=== PATIENT | male | born 1995 | race Caucasian/White ===

== ENCOUNTER 2017-05-24 20:33 | Emergency (ER) | payer OTHER ==
[~2017-05-24] VITALS: Ht 167.6 cm; Wt 72.6 kg
[2017-05-24 20:35] VITALS: BP 112/70
[2017-05-24] MEDS ORDERED: AMLO10TA PO (21:27)
[2017-05-24] MEDS ORDERED: DOCU-299 GT (21:27)
[2017-05-24] MEDS ORDERED: BENA20TA GT (21:27)
[2017-05-24] MEDS ORDERED: ACET-2619 GT (21:28)
[2017-05-24] MEDS ORDERED: FAMO-90 GT (21:28)
[2017-05-24] MEDS ORDERED: SENN-73 GT (21:28)
[2017-05-24] MEDS ORDERED: MAGN400S60 GT (21:28)
[2017-05-24] MEDS ORDERED: MIRABULK GT (21:28)
[2017-05-24] MEDS ORDERED: ONDA4TAB GT (21:28)
[2017-05-24] MEDS ORDERED: KEP500L GT (21:28)
[2017-05-25] MEDS ORDERED: ACETAMINOPHEN 325 MG TAB ONE (00:14)
[2017-05-25] MEDS ORDERED: ACETAMINOPHEN EXTRA STRENGTH 500 MG TAB PO ONE (00:20)
[2017-05-25] MEDS ORDERED: NACL 0.9% 1,000 ML IV ONE (00:25)
[2017-05-25 00:41] LABS: BASOPHILS # (AUTO) 0.4 K/uL (0.00-0.22); BASOPHILS % (AUTO) 4.4 % (0.0-2.0); EOSINOPHILS # (AUTO) 0.1 K/uL (0-0.4); EOSINOPHILS % (AUTO) 1.6 % (0.0-4.0); HEMATOCRIT 39.5 % (36-52); HEMOGLOBIN 12.8 g/dL (12.0-18.0); LYMPHOCYTES # (AUTO) 1.4 K/uL (2.0-11.5); LYMPHOCYTES % (AUTO) 15.4 % (20.5-51.1); MEAN CORPUSCULAR HEMOGLOBIN 26 pg (27-31); MEAN CORPUSCULAR HGB CONC 32 g/dL (33-37); MEAN CORPUSCULAR VOLUME 79 fL (80-94); MONOCYTES # (AUTO) 0.8 K/uL (0.8-1.0); MONOCYTES % (AUTO) 8.4 % (1.7-9.3); NEUTROPHILS # (AUTO) 6.6 K/uL (1.8-7.7); NEUTROPHILS % (AUTO) 70.2 % (42.2-75.2); PLATELET COUNT (AUTO) 316 K/uL (140-450); RED BLOOD CELL COUNT(AUTO) 5.03 MIL/uL (4.20-6.10); WHITE BLOOD COUNT (AUTO) 9.3 K/uL (4.8-10.8)
[2017-05-25 00:51] LABS: CARBON DIOXIDE 27.1 mmol/L (21-32); CREATININE 0.7 mg/dL (0.7-1.3); POTASSIUM 4.1 mmol/L (3.5-5.1)
[2017-05-25 04:45] VITALS: BP 106/61
== END 2017-05-25 03:45 | disposition home or self-care (01) ==
LOC: MED 20:33
DX: R51 Headache (principal); Z86.73 Personal history of transient ischemic attack (TIA), and cerebral infarction without residual deficits
CPT/HCPCS: 36415; 70450; 70460; 80048; 85025; 96360; 96361; 99285; J7030; Q9967

== ENCOUNTER 2017-10-12 19:50 | Inpatient (IN) | payer OTHER ==
[~2017-10-12] VITALS: Ht 177.8 cm; Wt 80.7 kg
[2017-10-12 19:50] VITALS: BP 109/66
[~2017-10-12 19:50] MED LIST: ACET-2619 GT; AMLO10TA PO; BENA20TA GT; DOCU-299 GT; FAMO-90 GT; KEP500L GT; MAGN400S60 GT; MIRABULK GT; ONDA4TAB GT; SENN-73 GT
[2017-10-12] MEDS ORDERED: NACL 0.9% 1,000 ML IV ONE (20:10)
[2017-10-12] MEDS ORDERED: ONDANSETRON 4 MG/2 ML VIAL IVP ONE (20:45)
[2017-10-12] MEDS ORDERED: fentaNYL 0.05 MG/ML VIAL IVP ONE ×2 (20:45→22:10)
[2017-10-12 20:54] LABS: BASOPHILS # (AUTO) 0.1 K/uL (0.00-0.22); BASOPHILS % (AUTO) 1.6 % (0.0-2.0); EOSINOPHILS # (AUTO) 0.2 K/uL (0-0.4); EOSINOPHILS % (AUTO) 1.8 % (0.0-4.0); HEMATOCRIT 40.2 % (36-52); HEMOGLOBIN 13.3 g/dL (12.0-18.0); LYMPHOCYTES # (AUTO) 1.9 K/uL (2.0-11.5); LYMPHOCYTES % (AUTO) 22.1 % (20.5-51.1); MEAN CORPUSCULAR HEMOGLOBIN 27 pg (27-31); MEAN CORPUSCULAR HGB CONC 33 g/dL (33-37); MEAN CORPUSCULAR VOLUME 81.2 fL (80-94); MONOCYTES # (AUTO) 0.9 K/uL (0.8-1.0); MONOCYTES % (AUTO) 10.5 % (1.7-9.3); NEUTROPHILS # (AUTO) 5.5 K/uL (1.8-7.7); PLATELET COUNT (AUTO) 230 K/uL (140-450); RED BLOOD CELL COUNT(AUTO) 4.95 MIL/uL (4.20-6.10); RED CELL DISTRIBUTION WIDTH 16.2 % (11.6-13.7); WHITE BLOOD COUNT (AUTO) 8.6 K/uL (4.8-10.8)
[2017-10-12 21:28] LABS: ANION GAP 12.5 (8-16); CARBON DIOXIDE 27.2 mmol/L (21-32); CREATININE 0.6 mg/dL (0.7-1.3); POTASSIUM 3.7 mmol/L (3.5-5.1)
[2017-10-12 21:29] LABS: PROTHROMBIN TIME 11.1 secs (10.8-13.4)
[2017-10-12 21:32] LABS: ALBUMIN 3.9 g/dL (3.4-5.0); TOTAL BILIRUBIN 0.4 mg/dL (0.0-1.0)
[2017-10-12 21:37] LABS: APPEARANCE,URINE CLEAR (CLEAR); BILIRUBIN,URINE NEGATIVE (NEGATIVE); BLOOD, URINE NEGATIVE (NEGATIVE); COLOR,URINE YELLOW (YELLOW); LEUKOCYTE ESTERASE ,URINE TRACE (NEGATIVE); NITRITE, URINE NEGATIVE (NEGATIVE); PH,URINE 7.5 (5.0-9.0); UGLUCOSE NEGATIVE (NEGATIVE)
[2017-10-12 21:50] LABS: RBC,URINE 0-5 (RARE) /HPF (0-5); WBC,URINE 0-5 (RARE) /HPF (0-5)
[2017-10-12] MEDS ORDERED: LEVOFLOXACIN 500 MG/D5W PREMIX 100 ML IV ONE (22:10)
[2017-10-12] MEDS: NACL 0.9% 1,000 ML IV SCH (23:01)
[2017-10-12] MEDS ORDERED: LORazepam 2 MG/ML VIAL IVP PRN (23:05)
[2017-10-12] MEDS ORDERED: HYDROcodone/APAP 5/325 MG 1 TAB TAB PO PRN ×2 (23:05)
[2017-10-12] MEDS ORDERED: ONDANSETRON 4 MG/2 ML VIAL IVP PRN (23:05)
[2017-10-13] MEDS ORDERED: cefTRIAXone 1,000 MG VIAL ONE (01:13)
[2017-10-13] MEDS: NACL 0.9% 1,000 ML IV SCH (01:49)
[2017-10-13 04:00] VITALS: BP 113/63
[2017-10-13 07:01] LABS: BASOPHILS # (AUTO) 0.1 K/uL (0.00-0.22); BASOPHILS % (AUTO) 0.7 % (0.0-2.0); EOSINOPHILS # (AUTO) 0.2 K/uL (0-0.4); EOSINOPHILS % (AUTO) 1.5 % (0.0-4.0); HEMATOCRIT 39.3 % (36-52); HEMOGLOBIN 12.9 g/dL (12.0-18.0); LYMPHOCYTES # (AUTO) 1.4 K/uL (2.0-11.5); MEAN CORPUSCULAR HEMOGLOBIN 27 pg (27-31); MEAN CORPUSCULAR HGB CONC 33 g/dL (33-37); MEAN CORPUSCULAR VOLUME 81.7 fL (80-94); MONOCYTES # (AUTO) 0.9 K/uL (0.8-1.0); MONOCYTES % (AUTO) 8.3 % (1.7-9.3); NEUTROPHILS # (AUTO) 8.1 K/uL (1.8-7.7); NEUTROPHILS % (AUTO) 76.5 % (42.2-75.2); PLATELET COUNT (AUTO) 223 K/uL (140-450); RED BLOOD CELL COUNT(AUTO) 4.81 MIL/uL (4.20-6.10); RED CELL DISTRIBUTION WIDTH 16.2 % (11.6-13.7); WHITE BLOOD COUNT (AUTO) 10.6 K/uL (4.8-10.8)
[2017-10-13] MEDS: ALBUTEROL 0.083% 2.5 MG/3 ML NEBU INH PRN ×2 (07:19→19:31)
[2017-10-13 07:31] LABS: ALBUMIN 3.7 g/dL (3.4-5.0); ANION GAP 16.1 (8-16); CARBON DIOXIDE 22.8 mmol/L (21-32); CREATININE 0.6 mg/dL (0.7-1.3); MAGNESIUM 1.8 mg/dL (1.8-2.4); POTASSIUM 3.9 mmol/L (3.5-5.1); TOTAL BILIRUBIN 0.6 mg/dL (0.0-1.0)
[2017-10-13 08:00] VITALS: BP 115/65
[2017-10-13 16:00] VITALS: BP 105/57
[2017-10-13 20:00] VITALS: BP 112/62
[2017-10-14] MEDS: NACL 0.9% 1,000 ML IV SCH ×2 (01:41→07:01)
[2017-10-14 07:11] LABS: BASOPHILS # (AUTO) 0.1 K/uL (0.00-0.22); BASOPHILS % (AUTO) 0.8 % (0.0-2.0); EOSINOPHILS # (AUTO) 0.2 K/uL (0-0.4); EOSINOPHILS % (AUTO) 2.5 % (0.0-4.0); HEMATOCRIT 37.9 % (36-52); HEMOGLOBIN 12.4 g/dL (12.0-18.0); LYMPHOCYTES # (AUTO) 1.7 K/uL (2.0-11.5); MEAN CORPUSCULAR HEMOGLOBIN 27 pg (27-31); MEAN CORPUSCULAR HGB CONC 33 g/dL (33-37); MEAN CORPUSCULAR VOLUME 80.8 fL (80-94); MONOCYTES # (AUTO) 0.7 K/uL (0.8-1.0); MONOCYTES % (AUTO) 8.9 % (1.7-9.3); NEUTROPHILS # (AUTO) 5.6 K/uL (1.8-7.7); NEUTROPHILS % (AUTO) 67.8 % (42.2-75.2); PLATELET COUNT (AUTO) 223 K/uL (140-450); RED BLOOD CELL COUNT(AUTO) 4.69 MIL/uL (4.20-6.10); RED CELL DISTRIBUTION WIDTH 16.4 % (11.6-13.7); WHITE BLOOD COUNT (AUTO) 8.3 K/uL (4.8-10.8)
[2017-10-14] MEDS: ALBUTEROL 0.083% 2.5 MG/3 ML NEBU INH PRN ×2 (07:14→13:09)
[2017-10-14 07:35] LABS: MAGNESIUM 1.8 mg/dL (1.8-2.4); PHOSPHORUS 3.8 mg/dL (2.5-4.9)
[2017-10-14 08:00] VITALS: BP 98/49
[2017-10-14 08:26] LABS: ANION GAP 15.5 (8-16); CARBON DIOXIDE 23.4 mmol/L (21-32); CREATININE 0.6 mg/dL (0.7-1.3); POTASSIUM 3.9 mmol/L (3.5-5.1)
[2017-10-14] MEDS ORDERED: ENOXAPARIN 30 MG/0.3 ML SYR SUBQ SCH (10:40)
[2017-10-14] MEDS ORDERED: ROC1PM IV (10:43)
[2017-10-14] MEDS: ACETAMINOPHEN 325 MG TAB PO PRN ×2 (11:55→16:09)
[2017-10-14 16:00] VITALS: BP 99/53
[2017-10-15] VITALS: BP 100/56
[2017-10-15 06:29] LABS: BASOPHILS # (AUTO) 0.1 K/uL (0.00-0.22); BASOPHILS % (AUTO) 0.8 % (0.0-2.0); EOSINOPHILS # (AUTO) 0.2 K/uL (0-0.4); HEMATOCRIT 39.1 % (36-52); LYMPHOCYTES # (AUTO) 1.6 K/uL (2.0-11.5); LYMPHOCYTES % (AUTO) 20.4 % (20.5-51.1); MEAN CORPUSCULAR HEMOGLOBIN 27 pg (27-31); MEAN CORPUSCULAR HGB CONC 33 g/dL (33-37); MEAN CORPUSCULAR VOLUME 81.4 fL (80-94); MONOCYTES # (AUTO) 0.9 K/uL (0.8-1.0); MONOCYTES % (AUTO) 12.1 % (1.7-9.3); NEUTROPHILS % (AUTO) 63.7 % (42.2-75.2); PLATELET COUNT (AUTO) 223 K/uL (140-450); RED BLOOD CELL COUNT(AUTO) 4.81 MIL/uL (4.20-6.10); RED CELL DISTRIBUTION WIDTH 16.4 % (11.6-13.7); WHITE BLOOD COUNT (AUTO) 7.8 K/uL (4.8-10.8)
[2017-10-15 06:36] LABS: ANION GAP 13.2 (8-16); CARBON DIOXIDE 25.5 mmol/L (21-32); CREATININE 0.6 mg/dL (0.7-1.3); POTASSIUM 3.7 mmol/L (3.5-5.1)
[2017-10-15 07:05] LABS: PHOSPHORUS 4.4 mg/dL (2.5-4.9)
[2017-10-15 08:00] VITALS: BP 102/56
[2017-10-15] MEDS ORDERED: ROC1PM IV ×3 (13:13→13:20)
[2017-10-15] MEDS: ACETAMINOPHEN 325 MG TAB PO PRN (14:54)
[2017-10-15 16:00] VITALS: BP 106/56
== END 2017-10-15 18:30 | disposition home or self-care (01) | DRG 463 ==
LOC: MED 19:50 → MTU 23:06
PROVIDERS: ADMIT Internal Medicine Pulmonary Disease; ATTEND Internal Medicine Pulmonary Disease
DX: N39.0 Urinary tract infection, site not specified (principal); J96.11 Chronic respiratory failure with hypoxia; R65.10 Systemic inflammatory response syndrome (SIRS) of non-infectious origin without acute organ dysfunction; Z93.0 Tracheostomy status; R13.10 Dysphagia, unspecified; Z93.1 Gastrostomy status; J20.9 Acute bronchitis, unspecified; I10 Essential (primary) hypertension; Z79.899 Other long term (current) drug therapy
CPT/HCPCS: 36415; 51702; 70450; 71045; 80048; 80053; 81001; 83605; 83735; 83880; 84100; 84484; 85025; 85610; 85730; 87040; 87070; 87081; 87086; 87205; 93005; 94640; 96365; 96375; 96376; 99285; J0696; J1956; J2405; J3010; J7030; J7060; J7120; J7613

== ENCOUNTER 2018-02-28 16:50 | Inpatient (IN) | payer OTHER ==
[~2018-02-28] VITALS: Ht 175.3 cm; Wt 73.5 kg
[~2018-02-28 16:50] MED LIST changes: +ROC1PM IV
--- NOTE | 2018-02-28 16:50 | NUR ---
PT BIBA BLS TO BED 10
[2018-02-28 16:51] VITALS: BP 106/60
--- NOTE | 2018-02-28 16:52 | NUR ---
PATIENT PRES[place] [facility] [place] HEADACHE AND FEVER FOR 4 DAYS. PT STATES HEADACHE IS SEVERE WITH PAIN AT 10/10. G TUBE IN PLACE, FLUSHED. DENIES N/V/D; SKIN IS PINK/WARM/DRY; AAOX3 WITH EVEN AND STEADY GAIT; LUNGS CLEAR BL; HR EVEN AND REGULAR; PT DENIES ANY FEVER, CP, SOB, OR COUGH AT THIS TIME; PATIENT STATES PAIN OF 10/10 AT THIS TIME; VSS; PATIENT POSITIONED FOR COMFORT; HOB ELEVATED; BEDRAILS UP X2; BED DOWN. ER MD MADE AWARE OF PT STATUS.
--- NOTE | 2018-02-28 17:08 | NUR ---
Patient being evaluated by physician at bedside.
[2018-02-28] MEDS ORDERED: NACL 0.9% 1,000 ML IV SCH (17:15)
[2018-02-28] MEDS ORDERED: fentaNYL 0.05 MG/ML VIAL IVP ONE (17:15)
[2018-02-28] MEDS ORDERED: ONDANSETRON 4 MG/2 ML VIAL IVP ONE (17:15)
--- NOTE | 2018-02-28 17:40 | NUR ---
RT AT BEDSIDE FOR BLOOD GAS DRAW
[2018-02-28 18:12] LABS: BASOPHILS # (AUTO) 0.1 K/uL (0.00-0.22); BASOPHILS % (AUTO) 0.9 % (0.0-2.0); EOSINOPHILS # (AUTO) 0.2 K/uL (0-0.4); EOSINOPHILS % (AUTO) 2.6 % (0.0-4.0); HEMATOCRIT 39.2 % (36-52); HEMOGLOBIN 12.7 g/dL (12.0-18.0); LYMPHOCYTES # (AUTO) 2.4 K/uL (2.0-11.5); LYMPHOCYTES % (AUTO) 26.8 % (20.5-51.1); MEAN CORPUSCULAR HEMOGLOBIN 25 pg (27-31); MEAN CORPUSCULAR HGB CONC 32 g/dL (33-37); MEAN CORPUSCULAR VOLUME 78.4 fL (80-94); MONOCYTES # (AUTO) 0.9 K/uL (0.8-1.0); MONOCYTES % (AUTO) 10.4 % (1.7-9.3); NEUTROPHILS # (AUTO) 5.2 K/uL (1.8-7.7); NEUTROPHILS % (AUTO) 59.3 % (42.2-75.2); PLATELET COUNT (AUTO) 292 K/uL (140-450); RED CELL DISTRIBUTION WIDTH 15.4 % (11.6-13.7); WHITE BLOOD COUNT (AUTO) 8.8 K/uL (4.8-10.8)
--- NOTE | 2018-02-28 18:20 | NUR ---
LAB CALLED FOR URINE PICKUP
[2018-02-28 18:22] LABS: ANION GAP 9.8 (8-16); CARBON DIOXIDE 28.8 mmol/L (21-32); CREATININE 0.6 mg/dL (0.7-1.3); POTASSIUM 3.6 mmol/L (3.5-5.1)
[2018-02-28 18:27] LABS: PROTHROMBIN TIME 10.6 secs (10.8-13.4)
[2018-02-28 18:28] LABS: ALBUMIN 3.4 g/dL (3.4-5.0); TOTAL BILIRUBIN 0.5 mg/dL (0.0-1.0)
[2018-02-28 18:31] LABS: APPEARANCE,URINE CLOUDY (CLEAR); COLOR,URINE YELLOW (YELLOW)
[2018-02-28 18:34] LABS: BILIRUBIN,URINE NEGATIVE (NEGATIVE); BLOOD, URINE TRACE (NEGATIVE); LEUKOCYTE ESTERASE ,URINE 3+ (NEGATIVE); NITRITE, URINE NEGATIVE (NEGATIVE); UGLUCOSE NEGATIVE (NEGATIVE)
[2018-02-28 18:41] LABS: RBC,URINE 3-10 (FEW) /HPF (0-5); WBC,URINE TOO MANY TO COUNT /HPF (0-5)
[2018-02-28] MEDS ORDERED: LEVOFLOXACIN 500 MG/D5W PREMIX 100 ML IV ONE (18:50)
[2018-02-28] MEDS ORDERED: KETOROLAC 15 MG/ML VIAL IVP ONE (18:55)
[2018-02-28] MEDS ORDERED: ONDANSETRON 4 MG/2 ML VIAL IVP PRN (19:10)
[2018-02-28] MEDS ORDERED: ACETAMINOPHEN 325 MG TAB PO PRN (19:10)
[2018-02-28] MEDS ORDERED: ALBUTEROL 0.083% 2.5 MG/3 ML NEBU INH PRN (19:10)
--- NOTE | 2018-02-28 19:12 | NUR ---
GAVE REPORT TO HIGH RAW SUGAR BOILER RNNATHALIA FOR CONTINUATION OF PATIENT CARE
[2018-02-28] MEDS ORDERED: ACETAMINOPHEN 325 MG TAB GT PRN (19:15)
--- NOTE | 2018-02-28 19:23 | NUR ---
RECEIVED REPORT FROM AM NURSE. PT RESTING COMFORTABLY IN BED, RR EVEN AND UNLABORED. VSS, PT REPORTS 11/15 HEADACHE. MEDS GIVEN ORDERED. ALL NEEDS MET.
[2018-02-28] MEDS ORDERED: ACETAMINOPHEN 650 MG/20.3 ML UDC GT PRN (19:45)
--- NOTE | 2018-02-28 20:00 | NUR ---
Patient will be admitted to care of DR. AGUILAR. Admited to TELE. Will go to room 116. Belongings list completed. Report to LESLY DEGROOT.
[2018-02-28 20:30] VITALS: BP 108/66
--- NOTE | 2018-02-28 20:30 | NUR ---
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
[2018-02-28] MEDS ORDERED: PIPERACILLIN/TAZOBACTAM 3.375 GM VIAL IV ONE (20:50)
[2018-02-28] MEDS: DEXT 5% /NACL 0.9% 1,000 ML IV SCH (20:52)
[2018-02-28] MEDS ORDERED: PIPERACILLIN/TAZOBACTAM 3.375 GM in DEXTROSE 5% 50 ML IV SCH (21:00)
[2018-02-28] MEDS: SENNA 8.6 MG TAB GT SCH (22:11)
[2018-02-28] MEDS: levETIRAcetam 100 MG/ML ORASYR GT SCH (22:11)
[2018-03-01] VITALS (7 sets, daily range): BP systolic 101–114; BP diastolic 52–65
--- NOTE | 2018-03-01 | NUR ---
REPOSITIONED Q2H ON TELEMETRY SR ON 06 10 LTS , ON TELEMETRY SR, ANTIBIOTICS GIVEN ORDER AND WELL TOLERATED G TUBE FEEDING ZERO RESIDUAL
--- NOTE | 2018-03-01 03:06 | NUR ---
PT SLEEPING WELL ON 2 LTS VIA NC, ON TELEMETRY SR NOT FEVER NOTED REPOSITIONED Q2H
--- NOTE | 2018-03-01 05:00 | NUR ---
SPONGE BATH GIVEN LINEN CHANGED REPOSITIONED IV N RT AC INFUSING WELL ON TELEMETRY SR
[2018-03-01] MEDS ORDERED: PIPERACILLIN/TAZOBACTAM 3.375 GM VIAL IV ONE (05:28)
[2018-03-01] MEDS ORDERED: PIPERACILLIN/TAZOBACTAM 3.375 GM in DEXTROSE 5% 50 ML IV SCH (06:00)
[2018-03-01 06:49] LABS: BASOPHILS # (AUTO) 0.1 K/uL (0.00-0.22); EOSINOPHILS # (AUTO) 0.2 K/uL (0-0.4); EOSINOPHILS % (AUTO) 1.9 % (0.0-4.0); HEMATOCRIT 36.7 % (36-52); HEMOGLOBIN 11.8 g/dL (12.0-18.0); LYMPHOCYTES # (AUTO) 1.5 K/uL (2.0-11.5); LYMPHOCYTES % (AUTO) 17.6 % (20.5-51.1); MEAN CORPUSCULAR HEMOGLOBIN 25 pg (27-31); MEAN CORPUSCULAR HGB CONC 32 g/dL (33-37); MONOCYTES # (AUTO) 0.7 K/uL (0.8-1.0); MONOCYTES % (AUTO) 7.8 % (1.7-9.3); NEUTROPHILS # (AUTO) 6.1 K/uL (1.8-7.7); NEUTROPHILS % (AUTO) 71.7 % (42.2-75.2); PLATELET COUNT (AUTO) 292 K/uL (140-450); RED BLOOD CELL COUNT(AUTO) 4.65 MIL/uL (4.20-6.10); RED CELL DISTRIBUTION WIDTH 15.5 % (11.6-13.7); WHITE BLOOD COUNT (AUTO) 8.5 K/uL (4.8-10.8)
--- NOTE | 2018-03-01 06:49 | NUR ---
PT SLEEPING NOT FEVER ON TELE SR PT WILL BE ENDORSED TO DAY SHIFT NURSE FOR CONTINUITY OF CARE
[2018-03-01 07:44] LABS: ALBUMIN 3.3 g/dL (3.4-5.0); ANION GAP 10.2 (8-16); CARBON DIOXIDE 29.1 mmol/L (21-32); CREATININE 0.6 mg/dL (0.7-1.3); MAGNESIUM 1.9 mg/dL (1.8-2.4); PHOSPHORUS 4.2 mg/dL (2.5-4.9); POTASSIUM 4.3 mmol/L (3.5-5.1); TOTAL BILIRUBIN 0.8 mg/dL (0.0-1.0)
--- NOTE | 2018-03-01 08:00 | NUR ---
RECEIVED REPORT FROM ZANE GRACE FOR CONTINUITY OF CARE. PATIENT AWAKE A/OX2 SLURRED SPEECH , ABLE TO MAKE NEEDS KNOWN. BED BOUND LEFT SIDED WEAKNESS. SKIN IS INTACT. WILL REPOSITION Q 2 HRS TO PREVENT SKIN BREAKDOWN. G-TUBE FEEDING SITE CLEAN AND DRY NO LEAKAGE . IV SITE RT AC GAUGE 20 INTACT AND PATENT. IVF INFUSING WELL . PLAN OF CARE DISCUSSED WITH THE PATIENT VITALS STABLE WILL CONTINUE TO MONITOR.
--- NOTE | 2018-03-01 08:36 | NUR ---
PATIENT HAS BEEN SCREENED AND CATEGORIZED HIGH NUTRITION RISK. PATIENT WILL BE SEEN WITHIN 1-2 DAYS OF ADMISSION. 03/01/18 03/02/[address]
[2018-03-01] MEDS: amLODIPine 5 MG TAB GT SCH (09:00)
[2018-03-01] MEDS: BENAZEPRIL 20 MG TAB GT SCH (09:00)
[2018-03-01] MEDS: FAMOTIDINE 20 MG TAB GT SCH (09:29)
[2018-03-01] MEDS: levETIRAcetam 100 MG/ML ORASYR GT SCH ×2 (09:29→20:26)
[2018-03-01] MEDS: POLYETHYLENE GLYCOL 17 GM/PKT GT SCH (09:29)
[2018-03-01] MEDS: DEXT 5% /NACL 0.9% 1,000 ML IV SCH (09:31)
[2018-03-01] MEDS: SENNA 8.6 MG TAB GT SCH ×2 (09:32→20:26)
--- NOTE | 2018-03-01 09:46 | NUR ---
DUE MEDS GIVEN TOLERATED WELL HELD BP MEDS FOR LOW BP 108/65 WILL RECHECK BP
--- NOTE | 2018-03-01 12:00 | NUR ---
RELAXED TOLERABLE HEADACHE , VITALS STABLE, KEPT PT CLEAN AND DRY AND REPOSITIONED VITALS STABLE AT THIS TIME
--- NOTE | 2018-03-01 12:35 | NUR ---
03/01/18 RD INITIAL ASSESSMENT COMPLETED PLEASE REFER TO NUTRITION ASSESSMENT UNDER CARE ACTIVITY FOR ESTIMATED NUTRITIONAL NEEDS. 1. RECOMMEND INITIATING TUBE FEEDING WITH JEVITY 1.2 @ GOAL RATE OF 70 ML/HR; START AT 20 ML/HR, ADVANCE BY 10 ML/HR TO GOAL RATE 70 ML/HR. -THIS WILL PROVIDE 1680 ML OF VOLUME, 2016 KCAL, AND 93 GM OF PROTEIN, WHICH MEETS 100% OF ESTIMATED NEEDS. 2. RECOMMEND FREE H20 FLUSH [address] TO FOLLOW-UP 2-3 DAYS, HIGH RISK YANCY EARLY RD
--- NOTE | 2018-03-01 13:00 | NUR ---
Initial review faxed to [facility].
--- NOTE | 2018-03-01 14:00 | NUR ---
DR AGUILAR VISITED PATIENT NOTIFIED DIATERY RECOMMENDATION FOR G-TUBE FEEDING ,NEW ORDER CARRIED OUT ,FAMILY AT THE BED SIDE SPOKE WITH DR AGUILAR REGARDING PATIENT'S CONDITION.
[2018-03-01] MEDS: PIPER/TAZO 3.375GM/D5W PREMIX 50 ML IV SCH ×3 (14:14→23:37)
[2018-03-01] MEDS ORDERED: HYDROcodone/APAP 5/325 MG 1 TAB TAB PO PRN (16:00)
[2018-03-01] MEDS ORDERED: HYDROcodone/APAP 10/325 MG 1 TAB TAB PO PRN (16:00)
--- NOTE | 2018-03-01 16:16 | NUR ---
AWAKE ,COMPLAIN OF HEAD ACHE NOTIFIED MD AMADO REYES WAITING FOR PHARMACY TO VERIFY. VITALS STABLE.
--- NOTE | 2018-03-01 17:45 | NUR ---
Criminal Justice Social Worker Notes: I called [facility] I spoke to Amee from Admissions to discuss and gather Patient's information. Per Amee Patient is on a 7 days hold and is able to return to [facility] when he is ready and clear for discharge. I thanked her for information and I ended the call.
--- NOTE | 2018-03-01 18:45 | NUR ---
PT STATED HEADACHE RELIEVED , SAFETY MAINTAINED CALL LIGHT IN REACH . STABLE CONDITION AT THIS TIME.
--- NOTE | 2018-03-01 19:30 | NUR ---
ASSUMED CARE OF PATIENT, AWAKE, ALERT AND ORIENTED. FAMILY AT BEDSIDE. NO COMPLAINS. CALL LIGHT WITHIN REACH. CARE BOARD UPDATED. PLAN OF CARE DISCUSSED WITH PATIENT AND FAMILY MEMBER, VERBALIZED UNDERSTANDING WELL.
--- NOTE | 2018-03-01 20:30 | NUR ---
REPOSITIONED AND PERICARE BY ASSESSMENT ANALYST. CALL LIGHT WITHIN REACH. HOB ELEVATED AT ALL TIME. GT FEEDING WELL, TOLERATED WITH NO RESIDUAL NOTED, INCREASE FEEDING TO 30ML/HR.
--- NOTE | 2018-03-01 21:00 | NUR ---
ICE PACK APPLIED TO HEAD PER MOTHER REQUEST. PAIN MEDS GIVEN WELL. CALL LIGHT WITHIN REACH.
--- NOTE | 2018-03-01 23:52 | NUR ---
ASLEEP, AFEBRILE. NO COMPLAINS. VITALS SIGNS STABLE. GT FEEDING ONGOING AND WELL TOLERATED. CALL LIGHT WITHIN REACH.
[2018-03-02] MEDS: DEXT 5% /NACL 0.9% 1,000 ML IV SCH ×2 (00:46→12:00)
[2018-03-02 04:10] VITALS: BP 101/54
--- NOTE | 2018-03-02 04:11 | NUR ---
REPOSITIONED AND PERICARE BY NAILING MACHINE OPERATOR AUTOMATIC. ASLEEP WELL, EASILY AROUSABLE. NO COMPLAINS. VITAL SIGNS STABLE. CALL LIGHT WITHIN REACH.
[2018-03-02] MEDS: PIPER/TAZO 3.375GM/D5W PREMIX 50 ML IV SCH ×2 (05:42→12:26)
--- NOTE | 2018-03-02 07:26 | NUR ---
ENDORSED CARE AT BEDSIDE WITH YOLANDA RN, PATIENT IN STABLE CONDITION.
--- NOTE | 2018-03-02 07:27 | NUR ---
RECEIVED REPORT FROM TRANSFER WORKER NURSE, PT IS SLEEPING IN BED BUT EASILY AWAKEN, PT IS AAOX2, PT IS ON BEDREST, HAS DELAYED VERBAL RESPONSE, PT IS ON O2 2L NC, PT HAS G-TUBE IN PLACE, JEVITY 1.2 RUNNING AT 40ML/HR, SKIN IS INTACT, IV IS ON THE LEFT AC, PATENT, INTACT, FLUSHING WELL, NO S/S OF RESPIRATORY DISTRESS OR DISCOMFORT NOTED, DISCUSSED PLAN OF CARE WITH PT, PT VERBALIZED UNDERSTANDING, SAFETY/FALL/SEIZURE PRECAUTIONS ARE IN PLACE, CALL LIGHT IS WITHIN REACH, WILL CONTINUE TO MONITOR.
[2018-03-02 08:00] VITALS: BP 116/73
--- NOTE | 2018-03-02 08:47 | NUR ---
PATIENT'S G-TUBE FEEDING CHECKED, PATIENT'S TUBE FEEDING INCREASED TO 50ML/HR AT THIS TIME.
[2018-03-02] MEDS: BENAZEPRIL 20 MG TAB GT SCH (09:29)
[2018-03-02] MEDS: SENNA 8.6 MG TAB GT SCH (09:29)
[2018-03-02] MEDS: levETIRAcetam 100 MG/ML ORASYR GT SCH (09:29)
[2018-03-02] MEDS: FAMOTIDINE 20 MG TAB GT SCH (09:29)
[2018-03-02] MEDS: POLYETHYLENE GLYCOL 17 GM/PKT GT SCH (09:29)
[2018-03-02] MEDS: amLODIPine 5 MG TAB GT SCH (09:30)
--- NOTE | 2018-03-02 09:40 | NUR ---
ADMINISTERED PATIENT'S SCHEDULED MEDICATIONS VIA G-TUBE. RESIDUAL WAS 0. PATIENT TOLERATED WELL. ALL NEEDS MET AT THIS TIME.
--- NOTE | 2018-03-02 10:57 | NUR ---
PT IS RESTING IN BED AT THIS TIME, SEMI FOWLERS POSITION, ALL NEEDS ARE MET AT THIS TIME. PATIENT'S MOTHER IS AT BEDSIDE, CALL LIGHT IS WITHIN REACH.
[2018-03-02] MEDS ORDERED: ZOS3.375PM IV (10:58)
[2018-03-02 12:00] VITALS: BP 101/49
--- NOTE | 2018-03-02 12:27 | NUR ---
PT IS RESTING IN BED AT THIS TIME, SEMI FOWLERS POSITION, ALL NEEDS ARE MET AT THIS TIME. CALL LIGHT IS WITHIN REACH.
--- NOTE | 2018-03-02 14:05 | NUR ---
CALLED THE PATIENT'S (VETO) AND LET HER KNOW THE PATIENT WOULD BE PICKED UP TODAY AT 1630.
--- NOTE | 2018-03-02 14:05 | NUR ---
CM NOTE RECEIVED ORDER [place] [facility] [place]. [place] CLINICAL PACKET [place]CROBIOLOG[place] [facility] [phone]. PER KAJAL [place] [facility] [place] CAN GO TO [address] AGUILAR. PER [facility] KIERSTEN AQUINO PH# [phone], FOR [facility] AUTH# [id number]. PER YUSUF OF [facility] PH# [phone], PATIENT WILL BE PICKED UP AT 1630 TIME TODAY GO[place] [facility] [place] JENNA GRACE AWARE. Addendum: 03/02/18 at 1503 by Lala Sterling CM PER IE KIERSTEN URBAN PH# [phone], FOR [facility] AUTH# [id number]. KAJAL OF [facility] AWARE.
[2018-03-02 16:00] VITALS: BP 109/63
--- NOTE | 2018-03-02 16:30 | NUR ---
CALLED [facility] AND GAVE REPORT TO BLAINE.
--- NOTE | 2018-03-02 17:00 | NUR ---
DISCHARGE INSTRUCTIONS GIVEN. RIGHT IV LEFT IN PLACE TO CONTINUE ABX. IV WAS PATENT AND INTACT, FLUSHING WELL. PATIENT HAD NO BURKS. PATIENT TOOK DISCHARGE PAPERWORK AND CELLPHONE AND BEAN ROASTER WITH HIM. PATIENT STABLE UPON DISCHARGE [place] [facility] [place].
== END 2018-03-02 17:00 | DRG 463 ==
LOC: MED 16:50 → MTU 19:14
PROVIDERS: ADMIT Hospitalist; ATTEND Hospitalist
DX: N39.0 Urinary tract infection, site not specified (principal); Z93.0 Tracheostomy status; R13.10 Dysphagia, unspecified; I69.254 Hemiplegia and hemiparesis following other nontraumatic intracranial hemorrhage affecting left non-dominant side; G40.909 Epilepsy, unspecified, not intractable, without status epilepticus; I10 Essential (primary) hypertension; R51 Headache; Z93.1 Gastrostomy status
CPT/HCPCS: 36415; 36600; 70450; 71045; 80053; 81001; 82803; 83605; 83735; 83880; 84100; 84484; 85025; 85610; 85730; 87040; 87081; 87086; 87186; 87804; 93005; 94640; 96365; 96375; 99285; J1885; J1956; J2405; J2543; J3010; J7042; J7060; J7613; Q0092

== ENCOUNTER 2018-03-18 05:43 | Emergency (ER) | payer OTHER ==
[~2018-03-18] VITALS: Ht 172.7 cm; Wt 59.0 kg
[~2018-03-18 05:43] MED LIST changes: -ROC1PM IV; +ZOS3.375PM IV
--- NOTE | 2018-03-18 05:45 | NUR ---
PT BIBA AND RECEIVED TO BED 5 VIA GURNEY. ASSUMED CARE OF PT AT THIS TIME. PATIENT STATES PAIN OF 0/10; VSS; PATIENT POSITIONED FOR COMFORT; HOB ELEVATED; BEDRAILS UP X2; BED DOWN. ER MD MADE AWARE OF PT STATUS. WILL CONTINUE TO MONITOR.
[2018-03-18 05:46] VITALS: BP 101/55
--- NOTE | 2018-03-18 05:55 | NUR ---
MD QUINTANA AT BEDSIDE FOR G-TUBE PLACEMENT.
--- NOTE | 2018-03-18 07:11 | NUR ---
REPORT GIVEN TO LESLY ESCUDERO TO ASSUME CARE.
--- NOTE | 2018-03-18 07:15 | NUR ---
REPORT GIVEN TO LESLY HUA. PRIMARY NURSE
[2018-03-18 07:26] VITALS: BP 113/69
--- NOTE | 2018-03-18 07:36 | NUR ---
[facility] 1220 ARRIVED FOR PT TRANSPORT TO [place]
--- NOTE | 2018-03-18 07:45 | NUR ---
Patient discharged with v/s stable. Written and verbal after care instructions given and explained. Patient's verbalized understanding. Ambulance Transport to [facility] [place] . All questions addressed prior to discharge. Advised to follow up with PMD.
== END 2018-03-18 07:45 | disposition home or self-care (01) ==
LOC: MED 05:43
DX: K94.23 Gastrostomy malfunction (principal); I10 Essential (primary) hypertension; Z43.1 Encounter for attention to gastrostomy; Z86.73 Personal history of transient ischemic attack (TIA), and cerebral infarction without residual deficits; Z79.899 Other long term (current) drug therapy
CPT/HCPCS: 74241; 99283

== ENCOUNTER 2018-05-23 22:19 | Emergency (ER) | payer OTHER ==
[~2018-05-23] VITALS: Ht 175.3 cm; Wt 54.4 kg
[~2018-05-23 22:19] MED LIST changes: -ZOS3.375PM IV
[2018-05-23 22:21] VITALS: BP 106/64
--- NOTE | 2018-05-23 22:29 | NUR ---
PT PRESENTS TO ED BIBA WITH C/O SOB. ON ARRIVAL PT IS 3L NC AND SATURATING 97%. CRACKLES HEARD BILATERALLY TO ASCULTATION. NO APPARENT DISTRESS NOTED. RESPIRATIONS ARE EVEN AND UNLABORED. PT PLACED INTO BED, PENDING MD GLOVER. PMH--CVA WITH L SIDED DEFECITS, PNA, HTN, EPILEPSY,
--- NOTE | 2018-05-23 22:42 | NUR ---
XRAY AND LAB AT BEDSIDE AT THIS TIME.
--- NOTE | 2018-05-23 22:42 | NUR ---
FLU SWAB COMPLETED AND GIVEN TO LAB AT BEDSIDE.
[2018-05-23 23:05] LABS: BASOPHILS # (AUTO) 0.1 K/uL (0.00-0.22); EOSINOPHILS # (AUTO) 0.3 K/uL (0-0.4); EOSINOPHILS % (AUTO) 3.3 % (0.0-4.0); LYMPHOCYTES % (AUTO) 25.4 % (20.5-51.1); MEAN CORPUSCULAR HEMOGLOBIN 25 pg (27-31); MEAN CORPUSCULAR HGB CONC 32 g/dL (33-37); MEAN CORPUSCULAR VOLUME 79.4 fL (80-94); MONOCYTES % (AUTO) 12.6 % (1.7-9.3); NEUTROPHILS # (AUTO) 4.6 K/uL (1.8-7.7); NEUTROPHILS % (AUTO) 57.7 % (42.2-75.2); PLATELET COUNT (AUTO) 274 K/uL (140-450); RED BLOOD CELL COUNT(AUTO) 5.17 MIL/uL (4.20-6.10); RED CELL DISTRIBUTION WIDTH 16.4 % (11.6-13.7)
[2018-05-23] MEDS ORDERED: HYDR-5122 PO (23:06)
[2018-05-23] MEDS ORDERED: THO25 PO (23:06)
[2018-05-23 23:13] LABS: ANION GAP 9.8 (8-16); CREATININE 0.6 mg/dL (0.7-1.3); POTASSIUM 3.8 mmol/L (3.5-5.1)
[2018-05-23 23:19] LABS: ALBUMIN 3.9 g/dL (3.4-5.0); TOTAL BILIRUBIN 0.6 mg/dL (0.0-1.0)
[2018-05-23] MEDS ORDERED: ALBUTEROL SULFATE/IPRATROPIU 3 ML SOL IH ONE (23:20)
--- NOTE | 2018-05-24 00:28 | NUR ---
REPORT GIVEN TO SHEKHAR GRACE, LENS ASSORTER [facility].
[2018-05-24 00:34] VITALS: BP 93/47
--- NOTE | 2018-05-24 00:34 | NUR ---
Patient discharged with v/s stable. Written and verbal after care instructions given and explained. Patient alert, oriented and verbalized understanding of instructions. Ambulatory with steady gait. All questions addressed prior to discharge. ID band removed. Patient advised to follow up with PMD. Rx of DOXYCYLINE, ALBUTEROL given. Patient educated on indication of medication including possible reaction and side effects. Opportunity to ask questions provided and answered.
== END 2018-05-24 00:34 ==
LOC: MED 22:19
DX: N20.0 Calculus of kidney (principal); R51 Headache; R07.0 Pain in throat; J45.909 Unspecified asthma, uncomplicated; K21.9 Gastro-esophageal reflux disease without esophagitis; I10 Essential (primary) hypertension; Z86.73 Personal history of transient ischemic attack (TIA), and cerebral infarction without residual deficits; Z79.899 Other long term (current) drug therapy
CPT/HCPCS: 36415; 71045; 80053; 85025; 87804; 94640; 99284; J7620